=== PATIENT | female | born 1980 | race Hispanic/Latino ===

== ENCOUNTER 2018-11-18 17:41 | Emergency (ER) | payer BC, MEDICAID ==
[2018-11-18] MEDS ORDERED: GLUCAGON 1MG KIT 1 MG ML ONE (18:11)
[2018-11-18] MEDS ORDERED: FAMOTIDINE/PF 20 MG/2 ML VIAL IV ONE (18:12)
[2018-11-18 18:50] LABS: BASOPHILS % (AUTO) 0.4 % (0.0-5.0); EOSINOPHILS % (AUTO) 0.9 % (0.0-8.0); HEMATOCRIT 30.6 % (36-48); LYMPHOCYTES % (AUTO) 26.1 % (21.0-51.0); MEAN CORPUSCULAR HEMOGLOBIN 25.3 pg (27.0-33.0); MEAN CORPUSCULAR HGB CONC 32.1 g/dL (32.0-36.0); MEAN CORPUSCULAR VOLUME 78.8 fL (79-99); MONOCYTES % (AUTO) 7.8 % (3.0-13.0); NEUTROPHILS % (AUTO) 64.8 % (40.0-77.0); PLATELET COUNT (AUTO) 332 K/uL (130-400); RED BLOOD CELL COUNT(AUTO) 3.89 MIL/uL (4.00-5.50); RED CELL DISTRIBUTION WIDTH 16.2 % (11.0-15.5); WHITE BLOOD COUNT (AUTO) 7.3 K/uL (4.8-10.8)
[2018-11-18 19:00] LABS: CREATININE 0.6 mg/dL (0.5-1.5); POTASSIUM 3.6 mmol/L (3.5-5.1)
[2018-11-18 19:05] LABS: ALBUMIN 3.4 g/dL (3.5-5.0); BILIRUBIN,TOTAL 0.1 mg/dL (0.2-1.0); TOTAL PROTEIN, SERUM 8.3 g/dL (6.0-8.3)
[2018-11-18] MEDS ORDERED: DICYCLOMINE HCL 20 MG TAB ONE (19:34)
[2018-11-18] MEDS ORDERED: IOHEXOL-350 75 ML VIAL IV ONE (21:32)
[2018-11-18] MEDS ORDERED: SODIUM CHLORIDE 0.9% 1000ML 1,000 ML IV ONE (21:34)
[2018-11-18] MEDS ORDERED: KETOROLAC TROMETHAMINE 15MG/ML ONE (21:34)
== END 2018-11-18 22:54 | disposition home or self-care (01) ==
LOC: EDH 17:41
DX: R13.10 Dysphagia, unspecified (principal); R07.89 Other chest pain
CPT/HCPCS: 36415; 71046; 71275; 80053; 81025; 83690; 84484; 85025; 85378; 93005; 96374; 96375; 99285; J1610; J1885; J3490; J7030; Q9967